=== PATIENT | female | born 1960 | race American Indian/Alaskan Native ===

== ENCOUNTER 2016-11-19 07:47 | Emergency (ER) | payer BC ==
[2016-11-19 08:26] VITALS: BP 150/93; PULSE 82; RESP 18; TEMP 98; O2SAT 98
--- NOTE | 2016-11-19 08:45 | C.PDOC ---
History Of Present Illness 56F c/o pain and swelling in her right 4th finger after she tripped and fell 4 days ago, on Wednesday. she says her finger "dislocated" to the side and she pulled it back into place. she came in today bc the swelling has not improved. she has used cold compresses but no medication for pain. Time Seen by Provider: 11/19/16 08:11 Chief Complaint (Nursing): Finger,Hand,&Wrist Past Medical History Vital Signs: Last Vital Signs Temp 98 F 11/19/16 08:04 Pulse 82 11/19/16 08:04 Resp 18 11/19/16 08:04 BP 150/93 H 11/19/16 08:04 Pulse Ox 98 11/19/16 09:12 - Medical History PMH: Hypercholesterolemia Family History: States: Other Other Family History: nc - Social History Hx Alcohol Use: Yes Hx Substance Use: No - Immunization History Hx Tetanus Toxoid Vaccination: No Hx Influenza Vaccination: Yes Hx Pneumococcal Vaccination: Yes Review Of Systems Constitutional: Negative for: Fever Cardiovascular: Negative for: Chest Pain Respiratory: Negative for: Shortness of Breath Gastrointestinal: Negative for: Nausea, Vomiting Musculoskeletal: Negative for: Neck Pain Neurological: Negative for: Weakness, Numbness, Headache Physical Exam - Physical Exam Appears: Well, Non-toxic, No Acute Distress Head: Atraumatic Respiratory: No Accessory Muscle Use Extremity: Normal ROM, Other (mild edema and ttp PIP join right 4th digit right hand. nl ROM and strength. nl cap refill. nl sensation.) ED Course And Treatment O2 Sat by Pulse Oximetry: 98 Medical Decision Making Medical Decision Making: XR right 4th digit- no acute fracture or dislocation Disposition - Disposition Referrals: Faisal Salas MD [Staff Provider] - Disposition: HOME/ ROUTINE Disposition Time: 09:11 Condition: GOOD Additional Instructions: Please follow up with your doctor. Follow up with the hand specialist as well. Return to the ER for any worsening symptoms or for any other concerns. Instructions: Finger Dislocation (ED), Finger Sprain (ED) Forms: General Discharge Instructions - Clinical Impression Clinical Impression: Finger sprain
--- NOTE | 2016-11-19 10:42 | RAD ---
Right 4th digit three views History: Prior dislocation. Comparison: None available. Findings: Prominent soft tissue swelling noted at the level of the 4th digit. No evidence of acute displaced fracture or dislocation. Impression: Soft tissue swelling noted at the level of the 4th digit. If pain persists, consider MRI.
== END 2016-11-19 09:35 | disposition home or self-care (01) ==
LOC: C.ER 07:47
DX: S63.614A Unspecified sprain of right ring finger, initial encounter (principal); W01.0XXA Fall on same level from slipping, tripping and stumbling without subsequent striking against object, initial encounter